=== PATIENT | male | born 2000 | race Caucasian/White ===

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

== ENCOUNTER 2022-02-23 14:03 | Outpatient (CLI) | payer BC, SELFPAY ==
[2022-02-25 15:08] LABS: Endomysial Antibody IgA Negative (Negative)
[2022-02-25 16:50] LABS: Deamidated Gliadin IgA 4 units (0-19); Deamidated Gliadin IgG 2 units (0-19); Immunoglobulin A 177 mg/dL (90-386); t-Transglutaminase IgA <2 U/mL (0-3)
== END 2022-02-23 23:59 | disposition home or self-care (01) ==
PROVIDERS: PCP Family Medicine; Referring Provider Family Medicine; Visit Provider Family Medicine
DX: R10.9 Unspecified abdominal pain (principal)
CPT/HCPCS: 36415; 82784; 83516; 86255

== ENCOUNTER → 2022-04-05 | Outpatient (CLI) | payer BC, SELFPAY ==
[2022-04-05 16:19] LABS: Absolute Lymphocyte Count 1.95 X10^3/uL (0.83-4.51); Absolute Neutrophil Count 2.8 X10^3/uL (2.0-7.7); Basophil# 0.04 X10^3/uL; Basophil% 0.7 % (0-1); Eosinophil# 0.21 X10^3/uL; Eosinophils% 3.8 % (0-5); Hematocrit 42.4 % (40-54); Lymphocyte # 1.95 X10^3/ul (0.83-4.51); Lymphocyte % 35.6 % (19-41); Mean Corp Hgb Conc 35.4 g/dL (32-36); Mean Corpuscular Hgb 28.8 pg (27.0-32.0); Mean Corpuscular Volume 81.5 fL (80-94); Mean Platelet Vol. 10.6 fl (6.2-12.0); Monocyte# 0.45 X10^3/uL; Monocyte% 8.2 % (0-10); NRBC Flagged by Analyzer 0 % (0-5); Neutrophil # 2.81 X10^3/uL (2.7-7.7); Neutrophil % 51.5 % (47-70); Platelet Count 244 K/mm3 (150-450); RBC Distribution Width CV 12.6 % (11.6-14.6); RBC Distribution Width SD 37.3 fl (35.1-43.9); White Blood Count 5.5 K/mm3 (4.4-11.0)
[2022-04-05 16:39] LABS: Erythrocyte Sedimentation Rate < 1 mm/hr (0-20)
[2022-04-05 16:57] LABS: ALB/GLOB Ratio 1.4 RATIO (0.9-2.4); AST(SGOT) 36 U/L (15-37); Alanine Aminotransfer ALT/SGPT 28 U/L (16-61); Albumin, Serum 4.3 g/dL (3.2-5.0); Alkaline Phosphatase 79 U/L (45-117); Anion Gap 7 (5-15); BUN 16 mg/dL (7-18); BUN/Creat Ratio 14.7 RATIO (10-20); CRP < 2.90 mg/L (0.0-3.0); Calcium,Total 9.6 mg/dL (8.5-10.1); Chloride 104 mmol/L (98-107); Creatinine, Serum 1.09 mg/dL (0.70-1.30); EST Glomerular Filtration Rate 92 mL/min (>60); Est Glom Filt Rate - Afr Amer 111 mL/min (>60); Globulin 3.1 g/dL (2.2-4.2); Glucose 85 mg/dL (74-106); Potassium 3.9 mmol/L (3.5-5.1); Protein, Total 7.4 g/dL (6.4-8.2); Sodium Level 139 mmol/L (136-145)
== END | disposition home or self-care (01) ==
LOC: LAB 15:35
PROVIDERS: PCP Family Medicine; Visit Provider Nurse Practitioner Adult Health
DX: R10.9 Unspecified abdominal pain (principal); R19.7 Diarrhea, unspecified; Z83.79 Family history of other diseases of the digestive system
CPT/HCPCS: 36415; 80053; 85025; 85652; 86140

== ENCOUNTER → 2022-04-15 | Outpatient (CLI) | payer BC, SELFPAY ==
--- NOTE | 2022-04-15 08:36 | US_ITS ---
STUDY: ABDOMINAL ULTRASOUND - RIGHT UPPER QUADRANT REASON FOR VISIT: Male, 22 years old RUQ pain, diarrhea -- RUQ US -- Chronic TECHNIQUE: Ultrasound evaluation of the right upper quadrant was performed with real-time and static quesada-scale imaging. TECHNICAL QUALITY: Adequate. COMPARISON: None. FINDINGS: Liver: The liver is mildly enlarged and measures 17.1 cm. There is normal echogenicity of the liver. The bile ducts are within normal limits. There is hepatic color flow. The direction of portal flow is hepatopetal. There is no demonstrated mass lesion. Gallbladder: Normal distended gallbladder. The gallbladder wall measures 2.1 mm. There is a negative sonographic Mcmullen''s sign. There is no pericholecystic fluid. There are no gallstones. Common Bile Duct (C.B.D.): The common bile duct measures 1.9 mm. Pancreas: Normal size of the head, body and tail of the pancreas. There is normal echogenicity of the pancreas. There is no demonstrated pancreatic mass or cyst. Right Kidney: Normal size of the right kidney. The right kidney measures 11.6 cm x 6.7 cm x 6.2 cm. Normal renal cortex. The right cortex measures 1.5 cm. There is no demonstrated renal mass or cyst. There is no right hydronephrosis. US/Abdomen Limited IMPRESSION: Borderline hepatomegaly. Electronically Signed: Jono Smith MD at 9:50 EDT ,
== END | disposition home or self-care (01) ==
LOC: US 08:35
PROVIDERS: PCP Family Medicine; Referring Provider Nurse Practitioner Adult Health; Visit Provider Nurse Practitioner Adult Health
DX: R10.11 Right upper quadrant pain (principal); R19.7 Diarrhea, unspecified
CPT/HCPCS: 76705

== ENCOUNTER 2022-07-13 05:33 | Day surgery (SDC) | payer BC, SELFPAY ==
[2022-07-13] VITALS (7 sets, daily range): BP systolic 99–132; BP diastolic 57–67; PULSE 56–63; RESP 16–18; TEMP 36.2–37.2; O2SAT 95–100; BMI 27.0
--- NOTE | 2022-07-13 | IMM_PTH ---
PATIENT: BEATRIS PEOPLES LOC: EN U#:[id number] AGE/SX: 22/M ROOM: RE07/13/[address]: Dr. Adan Melara DO : 2000 BED: DIS: 07/13/2022 SPEC #: [id number] RECD: 07/14/22 06:51 STATUS: WALTER REQ #: [id number] DIAMOND: 07/13/22 00:[address]: Adan Melara DEPT: IMMUNOHISTOCHEMISTRY RECD BY: Presley Barber ENTERED: 07/14/22 06:52 SP TYPE: IMMUNO OTHR DR: Dr. Jose Carter MD Tissues: COLON BIOPSY Procedures: H Pylori (initial) PHYSICIAN & INSTITUTION [place] [address] SPECIMEN INFORMATION: Tissue Source: B. Gastric body Clinical Info: Diarrhea, abdominal pain Specimen Number: [id number] CPT code: 11157 METHODOLOGY: Deparaffinized sections of prefer/formalin-fixed tissue or PAP/DQ stained slides are incubated with monoclonal/polyclonal antibodies/oligonucleotide probes. Localization is made via biotin free immunoperoxidase method. Appropriate controls are performed and reacted as expected. Results on target cell population are indicated in the following table: RESULTS: ANTIBODY / CLONE RESULT Block B H Pylori (polyclonal) negative These tests were developed and their performance characteristics determined by [facility]. They may not have been cleared or approved by the U.S. Food and Drug Administration. The FDA has determined that such clearance or approval is not necessary. The above immunohistochemical/dualISH markers are ordered and reviewed by the Pathologist. INTERPRETATION: Gastric body, biopsy: Negative for Helicobacter pylori organisms. AM: etienne
[2022-07-13] MEDS: Lactated Ringers 1,000 ML 15 ML IV (06:23)
--- NOTE | 2022-07-13 06:30 | EGD_PTH ---
PATIENT: BEATRIS PEOPLES LOC: EN U#:[id number] AGE/SX: 22/M ROOM: RE07/13/[address]: Dr. Adan Melara DO : 2000 BED: DIS: 07/13/2022 SPEC #: [id number] RECD: 07/13/22 11:14 STATUS: WALTER REBryant #: [id number] DIAMOND: 07/13/22 06:[address]: Adan Melara DEPT: SURGICAL PATHOLOGY RECD BY: Lisa Pak ENTERED: 07/13/22 11:52 SP TYPE: EGD BIOPSY [facility] DR: Dr. Jose Carter MD Tissues: A - Duodenum, NOS B - Gastric mucous membrane C - Esophagus, NOS D - Ileum, NOS E - COLON BIOPSY Procedures: Surgery Specimen Level IV HEADER OPERATION: Colonoscopy, EGD ([facility]) PRE-OP DIAGNOSIS: Diarrhea, abdominal pain TISSUE SUBMITTED: A. Duodenal biopsy, B. Gastric body biopsy, C. Distal esophageal biopsy, D. Terminal ileum, E. Random colonic biopsies MICROSCOPIC DIAGNOSIS A. 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 B. Gastric body biopsy: Minimal chronic inflammation. C. Distal esophageal biopsy? Gastric mucosa with mild chronic inflammation. No evidence of goblet cell metaplasia. See Comment. D. Terminal ileum: No pathologic change. E. Random colonic biopsies: No pathologic change. AM:am 07/14/2022 COMMENT B. The results of immunohistochemistry for Helicobacter pylori will be reported separately ([id number]). C. Alcian blue/PAS stain with matched control supports the above diagnosis. MICROSCOPIC DESCRIPTION Slides are reviewed. GROSS DESCRIPTION A. Received is one container labeled with the patient name and designated duodenal. The specimen consists of multiple irregular fragments of light hopkins soft tissue that in aggregate measure 1.2 x 0.3 x 0.1 cm. The specimen is totally submitted in one cassette. B: Received is one container labeled with the patient name and designated gastric body. The specimen consists of multiple irregular fragments of light hopkins soft tissue that in aggregate measure 0.8 x 0.3 x 0.1 cm.. The specimen is totally submitted in one cassette. C. Received is one container labeled with the patient name and designated distal esophageal. The specimen consists of two irregular fragments of light hopkins soft tissue that in aggregate measure 0.6 x 0.3 x 0.1 cm.. The specimen is totally submitted in one cassette. D. Received is one container labeled with the patient name and designated terminal ileum. The specimen consists of multiple irregular fragments of light hopkins soft tissue that in aggregate measure 1.2 x 0.3 x 0.1 cm.. The specimen is totally submitted in one cassette. E. Received is one container labeled with the patient name and designated random colonic. The specimen consists of multiple irregular fragments of light hopkins soft tissue that in aggregate measure 2.0 x 0.5 x 0.1 cm. The specimen is totally submitted in one cassette. / SJ:cc 07/13/22 TC:3 CPT:87996r2,34916
--- NOTE | 2022-07-13 06:31 | PCM.HP.BLA ---
History and Physical Date of Admission: 07/13/22 BEATRIS PEOPLES, is a 22 M who presents to the office today for recurrent episodes of abdominal pain. Last episode was in January. Went to ED, waited 4 hrs, vomited and felt better, so he left w/o being seen. Had 2 episodes that month and missed work which is unusual for him. [employer], coop at [employer] right now. Starts w/ discomfort in abdomen, then becomes sharp pain, hard to stand, gets diarrhea but has to sit on toilet for 15 minutes until he can go (feels like constipated at first). Typically feels better after diarrhea, the pain resolves. No melena or hematochezia. Only had nausea and vomiting w/ the last episode, he felt fine after vomiting. No hematemesis. Had shakes that time. Usually while on toilet he gets hot, sweaty. No fever. Gets some headaches but not correlated with GI symptoms. Started in first grade after getting sick from unpasteurized milk. Thinks the episodes occur after eating--maybe after he eats a lot and then does a physical activity. Pain is periumbilical or mid right abd. He was off gluten x 4 yrs. Recently took OTC treatment for gluten, now tolerates gluten. 02/23/22 celiac testing negative No OTC meds at this time Trying to eat healthier. He keeps physically fit. Denies joint pain, rashes, dry eyes, mouth sores. FH: 2 of his mother's siblings have ulcerative colitis ROS Const Constitutional: No fatigue ENT ENT: No difficulty swallowing Gastro GI: Positive for abdominal pain, bloating, constipation, diarrhea and vomiting; No belching, change in bowel habits, change in stool character, coffee ground emesis, cramping, heartburn, difficulty swallowing, feeling full early, excessive flatus, incontinent of stools, Vomiting blood/hematemesis, Blood in stool, loose stools, Black,tarry stools, nausea/dyspepsia, pain with swallowing or other Musc Musculoskeletal: No joint pain Skin Skin: No yellowing of the eye or itchy eyes Psych Psychiatric: No anxiety and No depression Endo Endocrine: No fatigue Aller/Imm Allergy/Immunologic: No itchy eyes Ortiz/Lymp Hematologic/Lymphatic: No easy bleeding or easy bruising Exam Const General: cooperative, healthy appearing, no acute distress, well developed and well groomed Nutritional Appearance: average body habitus Eyes General: appearance normal, both eyes and all related structures Neck Neck: normal visual inspection, no lymphadenopathy and supple Thyroid: thyroid normal Resp Effort & Inspection: normal respiratory effort GI Inspection: normal to inspection Percussion: normal to percussion Palpation: soft, no hepatosplenomegaly, no masses and nontender Skin General: no rashes or lesions noted Neuro Gait: normal gait Extrem General: normal to inspection Psych Mood: euthymic mood Affect: normal affect Quality Reporting Tobacco Screening ([facility] 138) Smoking Status: Never smoker Assessment and Plan Assessment and Plan (1) Abdominal pain: ?Status:?Acute (2) Diarrhea: ?Status:?Acute (3) FH: inflammatory bowel disease: ?Status:?Acute ? ? ? Orders:?Orders: ? Comprehensive Metabolic Profil 04/05/22 R10.9, R19.7, Z83.79 ? ? CRP 04/05/22 R10.9, R19.7, Z83.79 ? ? CBC W/Diff, Automated 04/05/22 R10.9, R19.7, Z83.79 ? ? Erythrocyte Sed Rate 04/05/22 R10.9, R19.7, Z83.79 ? ? Calprotectin, Stool 04/05/22 R10.9, R19.7, Z83.79 ? ? Stool Lactoferrin/WBC 04/05/22 R10.9, R19.7, Z83.79 ?Plan - Sara Perrin PUTTY REMOVER, PUTTY REMOVER-C: 22 yr old male with recurrent abdominal pain w/ diarrhea (and one time vomiting) x 14 yrs. No known rectal bleeding. FH IBD. DDx includes gallbladder disease, IBD, IBS, pancreatitis.? We will get labs today and stool tests for inflammation are ordered.? We will schedule him for endoscopy in case that proves to be necessary, we may change that plan based on lab results.? Follow-up 2 weeks after endoscopy, but in the meantime I will contact patient and his mother about his results. Plan Details Other Medications: ?Discontinued: ? acetaminophen-codeine 300-30 mg ?? Discontinued Reason:? Pt no longer taking 1 - 2 tabs (1 - 2 x 300-30 mg) PO Q6H PRN PRN 30 TABLETS 0RF Pain ? ? I have re-examined the patient. There are no clinical changes since date of exam.
--- NOTE | 2022-07-13 07:11 | OP.EGD_ITS ---
Patient Name: Negro Hale Procedure Date: 07/13/2022 6:29 AM Date of : 2000 Age: 22 Procedure: Upper GI endoscopy Indications: Generalized abdominal pain, Failure to respond to medical treatment Providers: Adan Melara DO Medicines: Monitored Anesthesia Care Patient Profile: This is a 22 year old male. Refer to note in patient chart for documentation of history and physical. Patient has symptoms of chronic abdominal cramping and chronic global abdominal pain. Complications: No immediate complications. Procedure: Pre-Anesthesia Assessment: - Prior to the procedure, a History and Physical was performed, and patient medications and allergies were reviewed. The risks and benefits of the procedure and the sedation options and risks were discussed with the patient. All questions were answered and informed consent was obtained. Patient identification and proposed procedure were verified by the physician in the pre-procedure area. Mental Status Examination: alert and oriented. Airway Examination: normal oropharyngeal airway and neck mobility. Respiratory Examination: clear to auscultation. CV Examination: normal. Prophylactic Antibiotics: The patient does not require prophylactic antibiotics. Prior Anticoagulants: The patient has taken no previous anticoagulant or antiplatelet agents. ASA Grade Assessment: II - A patient with mild systemic disease. After reviewing the risks and benefits, the patient was deemed in satisfactory condition to undergo the procedure. The anesthesia plan was to use moderate sedation / analgesia (conscious sedation). Immediately prior to administration of medications, the patient was re-assessed for adequacy to receive sedatives. The heart rate, respiratory rate, oxygen saturations, blood pressure, adequacy of pulmonary ventilation, and response to care were monitored throughout the procedure. The physical status of the patient was re-assessed after the procedure. After obtaining informed consent, the endoscope was passed under direct vision. Throughout the procedure, the patient's blood pressure, pulse, and oxygen saturations were monitored continuously. The pediatric colonoscope was introduced through the mouth, and advanced to the second part of duodenum. The upper GI endoscopy was accomplished without difficulty. The patient tolerated the procedure well. Scope In: 6:42:03 AM Scope Out: 6:47:46 AM Total Procedure Duration Time 0 hours 5 minutes 43 seconds Findings: The Z-line was irregular and was found 38 cm from the incisors. Biopsies were taken with a cold forceps for histology. Verification of patient identification for the specimen was done. Estimated blood loss was minimal. Patchy mildly erythematous mucosa without bleeding was found in the gastric body. Biopsies were taken with a cold forceps for histology. Verification of patient identification for the specimen was done. Patchy mildly erythematous mucosa without active bleeding and with no stigmata of bleeding was found in the duodenal bulb. Biopsies were taken with a cold forceps for histology. Verification of patient identification for the specimen was done. Estimated blood loss was minimal. Impression: - Z-line irregular, 38 cm from the incisors. Biopsied. - Erythematous mucosa in the gastric body. Biopsied. - Erythematous duodenopathy. Biopsied. Recommendation: - Discharge patient to home. - Resume previous diet. - Continue present medications. - Await pathology results. Procedure Code(s): --- Professional --- 91594, Esophagogastroduodenoscopy, flexible, transoral; with biopsy, single or multiple CPT copyright 2017 [employer]. All rights reserved. The codes documented in this report are preliminary and upon apprentice machinist outside review may be revised to meet current compliance requirements. Adan Melara DO 07/13/2022 7:10:50 AM This report has been signed electronically. Number of Addenda: 1 Note Initiated On: 07/13/2022 6:29 AM Addendum Number: 1 Addendum Date: 09/01/2022 6:17:33 AM MAC was used as sedation for this procedure. Adan Melara DO 09/01/2022 6:17:40 AM This report has been signed electronically.
--- NOTE | 2022-07-13 07:12 | OP.CCLET_ITS ---
09/01/2022 Jose Carter [address] [place] [address] Re : Upper GI endoscopy procedure for Negro Hale Dear Dr. Carter This procedure was performed on Wednesday, July 13, 2022. My impressions and recommendations are as follows: Impressions : - Z-line irregular, 38 cm from the incisors. Biopsied. - Erythematous mucosa in the gastric body. Biopsied. - Erythematous duodenopathy. Biopsied. Recommendations : - Discharge patient to home. - Resume previous diet. - Continue present medications. - Await pathology results. My findings are described in the full procedure note, which is enclosed. If I can be of further assistance, please feel free to contact me at . Sincerely, Adan Melara, 07/13/2022 7:10:50 AM This report has been signed electronically.
--- NOTE | 2022-07-13 07:17 | OP.COLON_ITS ---
Patient Name: Negro Hale Procedure Date: 07/13/2022 6:48 AM Date of : 2000 Age: 22 Procedure: Colonoscopy Indications: Generalized abdominal pain, Clinically significant diarrhea of unexplained origin Providers: Adan Melara DO Medicines: Monitored Anesthesia Care Patient Profile: This is a 22 year old male. Refer to note in patient chart for documentation of history and physical. Patient has symptoms of chronic abdominal cramping and chronic global abdominal pain. Last Colonoscopy: none. The patient's first colonoscopy is today. Complications: No immediate complications. Procedure: Pre-Anesthesia Assessment: - Prior to the procedure, a History and Physical was performed, and patient medications and allergies were reviewed. The risks and benefits of the procedure and the sedation options and risks were discussed with the patient. All questions were answered and informed consent was obtained. Patient identification and proposed procedure were verified by the physician in the pre-procedure area. Mental Status Examination: alert and oriented. Airway Examination: normal oropharyngeal airway and neck mobility. Respiratory Examination: clear to auscultation. CV Examination: normal. Prophylactic Antibiotics: The patient does not require prophylactic antibiotics. Prior Anticoagulants: The patient has taken no previous anticoagulant or antiplatelet agents. ASA Grade Assessment: II - A patient with mild systemic disease. After reviewing the risks and benefits, the patient was deemed in satisfactory condition to undergo the procedure. The anesthesia plan was to use moderate sedation / analgesia (conscious sedation). Immediately prior to administration of medications, the patient was re-assessed for adequacy to receive sedatives. The heart rate, respiratory rate, oxygen saturations, blood pressure, adequacy of pulmonary ventilation, and response to care were monitored throughout the procedure. The physical status of the patient was re-assessed after the procedure. After I obtained informed consent, the scope was passed under direct vision. Throughout the procedure, the patient's blood pressure, pulse, and oxygen saturations were monitored continuously. The Colonoscope was introduced through the anus and advanced to the terminal ileum. The colonoscopy was performed without difficulty. The patient tolerated the procedure well. The quality of the bowel preparation was good. Scope In: 6:49:52 AM Scope Withdrawal Time 0 hours 9 minutes 38 seconds Scope Out: 7:02:33 AM Total Procedure Duration Time 0 hours 12 minutes 41 seconds Findings: The perianal exam findings include Decreased rectal tone. The colon (entire examined portion) appeared normal. Biopsies were taken with a cold forceps for histology. Verification of patient identification for the specimen was done. Estimated blood loss was minimal. A patchy area of the terminal ileum was congested. Biopsies were taken with a cold forceps for histology. Verification of patient identification for the specimen was done. Estimated blood loss was minimal. Impression: - Decreased rectal tone. found on perianal exam. - The entire examined colon is normal. Biopsied. - Congested mucosa in the terminal ileum. Biopsied. Recommendation: - Discharge patient to home. - Resume previous diet. - Continue present medications. - Await pathology results. - Repeat colonoscopy in 5 years for surveillance based on pathology results. Procedure Code(s): --- Professional --- 44902, Colonoscopy, flexible; with biopsy, single or multiple CPT copyright 2017 [employer]. All rights reserved. The codes documented in this report are preliminary and upon worship director review may be revised to meet current compliance requirements. Adan Melara DO 07/13/2022 7:16:44 AM This report has been signed electronically. Number of Addenda: 1 Note Initiated On: 07/13/2022 6:48 AM Addendum Number: 1 Addendum Date: 09/01/2022 6:17:48 AM MAC was used as sedation for this procedure. Adan Melara DO 09/01/2022 6:17:52 AM This report has been signed electronically.
--- NOTE | 2022-07-13 07:18 | OP.CCLET_ITS ---
09/01/2022 Jose Carter [address] [place] [address] Re : Colonoscopy procedure for Negro Hale Dear Dr. Carter This procedure was performed on Wednesday, July 13, 2022. My impressions and recommendations are as follows: Impressions : - Decreased rectal tone. found on perianal exam. - The entire examined colon is normal. Biopsied. - Congested mucosa in the terminal ileum. Biopsied. Recommendations : - Discharge patient to home. - Resume previous diet. - Continue present medications. - Await pathology results. - Repeat colonoscopy in 5 years for surveillance based on pathology results. My findings are described in the full procedure note, which is enclosed. If I can be of further assistance, please feel free to contact me at . Sincerely, Adan Melara, 07/13/2022 7:16:44 AM This report has been signed electronically.
== END 2022-07-13 08:02 | disposition home or self-care (01) ==
LOC: EN 05:38 → AC 05:39
PROVIDERS: PCP Family Medicine; Referring Provider Family Medicine; Visit Provider Internal Medicine Gastroenterology
PROC: 0DJD8ZZ Inspection of Lower Intestinal Tract, Via Natural or Artificial Opening Endoscopic (ICD-10-PCS; CPT 45378; principal; 2022-07-13 06:25)
DX: K31.89 Other diseases of stomach and duodenum (principal); R10.84 Generalized abdominal pain; R19.7 Diarrhea, unspecified; Z83.79 Family history of other diseases of the digestive system
CPT/HCPCS: 45380; 43239; 88305; 88342; J7120; J2405

== ENCOUNTER 2022-08-22 16:26 | Observation (INO) | payer BC, SELFPAY ==
[2022-08-22 16:27] VITALS: BP 117/65; PULSE 68; RESP 17; TEMP 37; O2SAT 99; BMI 28.0
--- NOTE | 2022-08-22 16:40 | EDS_ITS ---
HPI HPI - GI History of Present Illness Chief Complaint: Abd Pain Narrative Narrative: Patient with past medical history of stomach problems presents with abdominal pain that he has had since 8:00 this morning, for approximately 8 and half hours. He has pain in the right lower quadrant and is nauseated but cannot vomit. He states he has been seen by Dr. Melara and is currently being worked up for why he has been having abdominal issues for the last few months. His mother relates history that back in January of this year he had a bad episode of abdominal pain and cramping and was off work for a day or 2. He states that he began having pain at work this morning, took ibuprofen, and his pain has improved but he has crampy to stabbing abdominal pain all over but also in the right lower quadrant. He denies any problems with diarrhea currently, but s tates on occasion intermittently he will have diarrhea or constipation. He feels nauseated but states he cannot vomit. No fevers or chills. No exacerbating or alleviating factors. PFSH PFSH Medical History Asthma FH: inflammatory bowel disease Non-smoker Wears contact lenses Home Medications NK 04/05/22 [History Last Taken Unknown] Allergy/AdvReac Type Severity Reaction Status Date / Time No Known Allergies Allergy Verified 08/22/22 16:31 Family History Other Colitis Surgical History Hx of foot surgery Hx of hand surgery Hx of wisdom tooth extraction Social History Smoking Status: Never smoker alcohol intake: never ROS ROS ED ROS Narrative Constitutional: No fever, no chills. HEENT: No sore throat. No neck pain. No loss of vision. No rhinorrhea. Cardiovascular: No chest pain. No palpitations. No pedal edema. Respiratory: No cough, no shortness of breath. Abdominal: Diffuse to right lower quadrant abdominal pain. Positive nausea. No vomiting. No problems with bowel movements/diarrhea Genitourinary: No dysuria. No hematuria. Musculoskeletal: No myalgias. No arthralgias. Neurologic: No headaches. No dizziness. No lightheadedness. Skin: No rash. No change in color. Psychiatric: No depression. No anxiety. EXAM Physical Exam Narrative Exam Narrative: Afebrile. Vital signs noted. HEENT: Normocephalic. Atraumatic. PERRL, EOMI. Neck soft and supple. No point tenderness or step off. Cardiovascular: Regular rate and rhythm. No murmurs, rubs, or gallops appreciated. Respiratory: No tachypnea. Lungs clear to auscultation bilaterally. Gastrointestinal: Abdomen soft, mild tenderness right lower quadrant with normoactive bowel sounds. No rebound or guarding. Negative heel strike. Neurological: Awake. Alert. Nonfocal, nonlateralizing. Skin: No rash. Normal color. No pallor. Musculoskeletal: No pedal edema. Full range of motion extremities. Const Vital Signs: 08/22/22 16:27 08/22/22 18:51 08/22/22 18:54 Temperature 98.6 F 98.7 F Temperature Source Temporal Oral Pulse Rate 68 62 62 Respiratory Rate 17 16 16 Blood Pressure 117/65 124/87 H Blood Pressure Mean 82 99 Blood Pressure Source Monitor Blood Pressure Position Semi-Fowlers Blood Pressure Location Right Arm Pulse Ox 99 99 100 Oxygen Delivery Method Room Air Room Air Room Air 08/22/22 20:55 08/22/22 22:29 Temperature 97.9 F Temperature Source Oral Pulse Rate 78 78 Respiratory Rate 16 16 Blood Pressure 112/65 117/62 Blood Pressure Mean 80 80 Blood Pressure Source Blood Pressure Position Blood Pressure Location Pulse Ox 98 99 Oxygen Delivery Method Room Air Room Air MDM MDM MDM Narrative Medical decision making narrative: Comprehensive work-up was pursued. I do feel CT imaging is indicated to rule out appendicitis given the tenderness in his right lower quadrant. Patient has an elevated white count of 14.4. Hemoglobin normal at 14.5. CMP is grossly unremarkable except for total bili of 1.1. CT of the abdomen pelvis is consistent with acute appendicitis with dilation greater than 13 mm. He was started on Zosyn. I discussed the patient with Dr. Karimi on for general surgery. Disposition is admit to the OR in stable condition. Lab Data Attestation: I reviewed the patient's lab results. Labs: Laboratory Results - last 24 hr 08/22/22 08/22/22 08/22/22 16:50 16:50 19:00 WBC 14.4 H RBC 5.18 Hgb 14.5 Hct 42.2 MCV 81.5 MCH 28.0 MCHC 34.4 RDW Std Deviation 36.2 RDW Coeff of Mor 12.2 Plt Count 231 MPV 11.3 Immature Gran % (Auto) 0.400 Neut % (Auto) 84.3 H Lymph % (Auto) 6.7 L [place] % (Auto) 7.7 Eos % (Auto) 0.6 Baso % (Auto) 0.3 Absolute Neuts (auto) 12.1 H Absolute Lymphs (auto) 0.96 Nucleated RBC % 0 Sodium 140 Potassium 3.7 Chloride 105 Carbon Dioxide 29.0 Anion Gap 6 BUN 16 Creatinine 1.18 Estim Creat Clear Calc 99.86 Est GFR (MDRD) Af Amer 101 Est GFR (MDRD) Non-Af 83 BUN/Creatinine Ratio 13.6 Glucose 111 H Calcium 9.6 Total Bilirubin 1.10 H AST 25 ALT 21 Alkaline Phosphatase 81 Total Protein 7.7 Albumin 4.2 Globulin 3.5 Albumin/Globulin Ratio 1.2 Urine Color Yellow Urine Clarity Clear Urine pH 8.0 Ur Specific [place] 1.010 Urine Protein Negative Urine Glucose (UA) Normal Urine Ketones 5 H Urine Occult Blood Negative Urine Nitrite Negative Urine Bilirubin Negative Urine Urobilinogen Normal Ur Leukocyte Esterase Negative Urine RBC 0 SEEN Urine WBC 0 SEEN Ur Squamous Epith Cells 0-5 SEEN Urine Bacteria RARE Urine Mucus 0 SEEN Radiography Diagnostic Testing: Clinical Impression(s) from Imaging Studies Abdomen/Pelvis CT 08/22/22 17:06 IMPRESSION: (NOT LISTED IN ORDER OF SIGNIFICANCE) Acute appendicitis. Other findings as above. Critical finding called and case discussed. Electronically Signed: Andry French MD at 17:55 EDT Reading Location ID and State: [facility] / [place] , Service support , ADDENDUM: 08/22/22 2407 IMPRESSION: (NOT LISTED IN ORDER OF SIGNIFICANCE) Acute appendicitis. Other findings as above. Critical finding called and case discussed. N.B. : The above Results were Read Back by Andry French MD to Gadiel Pradhan MD, and understanding confirmed on 08/22/2022 18:02:14 (ET). Electronically Signed: Andry Frnech MD at 17:55 EDT , Discharge Plan Dx/Rx/DC Orders Clinical Impression: Abdominal pain, Acute appendicitis, Nausea Disposition Disposition: Acute Care Hospital [facility]
[2022-08-22] MEDS: Morphine 4 MG/ML Syringe IV (16:52)
[2022-08-22] MEDS: 0.9% Normal Saline 1,000 ML 1000 ML IV (16:53)
[2022-08-22] MEDS: Ondansetron 4 MG/2 ML Vial IV (16:53)
--- NOTE | 2022-08-22 17:06 | CT_ITS ---
We are attempting to reach an attending provider to discuss findings. An addendum with communication details will be sent when the communication is complete. STUDY: CT Abdomen And Pelvis W/ Contrast Injection 08/22/2022 5:42 PM REASON FOR EXAM: Male, 22 years old. ABDOMINAL PAIN RLQ Pain TECHNIQUE: Transaxial images were obtained without oral contrast, and with IV 100mL Isovue-300 intravenous contrast. Individualized dose optimization techniques were used for this CT. COMPARISON: None. FINDINGS: The visualized lung bases are unremarkable. The visualized portions of the heart are within normal limits. Unremarkable liver. Unremarkable gallbladder and extrahepatic biliary system. Unremarkable spleen. Unremarkable pancreas. Unremarkable bilateral adrenal glands. No acute findings of the right kidney. No acute findings of the left kidney. Unremarkable visualized stomach. Unremarkable small intestine. Unremarkable colon. There is a tubular, thick-walled appendix (>13mm), consistent with acute appendicitis. Appendicolith at the base of the appendix. Appendix is retrocecal. The appendix extends into the pelvis. There are no acute findings of the abdominal aorta. Unremarkable inferior vena cava. Subcentimeter mesenteric lymph nodes. Unremarkable urinary bladder. Unremarkable abdominal wall. Unremarkable osseous structures. CT/Abdomen/Pelvis W IV Cont ONLY IMPRESSION: (NOT LISTED IN ORDER OF SIGNIFICANCE) Acute appendicitis. Other findings as above. Critical finding called and case discussed. Electronically Signed: Andry French MD at 17:55 EDT ,
[2022-08-22 17:08] LABS: Absolute Lymphocyte Count 0.96 X10^3/uL (0.83-4.51); Absolute Neutrophil Count 12.1 X10^3/uL (2.0-7.7); Basophil# 0.04 X10^3/uL; Basophil% 0.3 % (0-1); Eosinophil# 0.08 X10^3/uL; Eosinophils% 0.6 % (0-5); Hematocrit 42.2 % (40-54); Hemoglobin 14.5 g/dL (13.0-16.5); Lymphocyte # 0.96 X10^3/ul (0.83-4.51); Lymphocyte % 6.7 % (19-41); Mean Corp Hgb Conc 34.4 g/dL (32-36); Mean Corpuscular Volume 81.5 fL (80-94); Mean Platelet Vol. 11.3 fl (6.2-12.0); Monocyte# 1.11 X10^3/uL; Monocyte% 7.7 % (0-10); NRBC Flagged by Analyzer 0 % (0-5); Neutrophil # 12.11 X10^3/uL (2.7-7.7); Neutrophil % 84.3 % (47-70); Platelet Count 231 K/mm3 (150-450); RBC Distribution Width CV 12.2 % (11.6-14.6); RBC Distribution Width SD 36.2 fl (35.1-43.9); Red Blood Count 5.18 M/mm3 (4.6-6.2); White Blood Count 14.4 K/mm3 (4.4-11.0)
[2022-08-22 17:29] LABS: ALB/GLOB Ratio 1.2 RATIO (0.9-2.4); AST(SGOT) 25 U/L (15-37); Alanine Aminotransfer ALT/SGPT 21 U/L (16-61); Albumin, Serum 4.2 g/dL (3.2-5.0); Alkaline Phosphatase 81 U/L (45-117); Anion Gap 6 (5-15); BUN 16 mg/dL (7-18); BUN/Creat Ratio 13.6 RATIO (10-20); Calcium,Total 9.6 mg/dL (8.5-10.1); Chloride 105 mmol/L (98-107); Creatinine, Serum 1.18 mg/dL (0.70-1.30); EST Glomerular Filtration Rate 83 mL/min (>60); Est Glom Filt Rate - Afr Amer 101 mL/min (>60); Estimated Creatinine Clearance 99.86 ml/min; Globulin 3.5 g/dL (2.2-4.2); Glucose 111 mg/dL (74-106); Potassium 3.7 mmol/L (3.5-5.1); Protein, Total 7.7 g/dL (6.4-8.2); Sodium Level 140 mmol/L (136-145)
--- NOTE | 2022-08-22 18:28 | CON.PCM.SX_ITS ---
Assessment & Plan Assessment/Plan (1) Acute appendicitis: PLAN: My plan is perform a laparoscopic appendectomy I have counseled the patient as to the risks of the procedure, including but not limited to: infection, bleeding, injury to any blood vessels/nerves, injury to any bowel/bladder, injury to any intraabdominal organs such as the liver/spleen, perforation of the GI tract, intraabdominal abscess/bleeding, incisional hernias, injury to the common bile duct/biliary ducts, injury to the spermatic cord/vessels/testicles, recurrence of hernia(s), complications of anesthesia, etc. The patient verbalizes understanding. HPI Consult Data Date of Consult: 08/22/22 HPI Narrative HPI Narrative: BEATRIS PEOPLES, is a 22 M who presents with past medical history of stomach problems presents with abdominal pain that he has had since 8:00 this morning, for approximately 8 and half hours.? He has pain in the right lower quadrant and is nauseated but cannot vomit.? He states he has been seen by Dr. Melara and is currently being worked up for why he has been having abdominal issues for the last few months.? His mother relates history that back in January of this year he had a bad episode of abdominal pain and cramping and was off work for a day or 2.? He states that he began having pain at work this morning, took ibuprofen, and his pain has improved but he has crampy to stabbing abdominal pain all over but also in the right lower quadrant.? He denies any problems with diarrh ea currently, but states on occasion intermittently he will have diarrhea or constipation.? He feels nauseated but states he cannot vomit.? No fevers or chills.? No exacerbating or alleviating factors. CT scan of the appendix showed acute appendicitis with the base of the appendix showing a questionable appendicolith. Did not appear to be perforated. [facility] Medical History Asthma FH: inflammatory bowel disease Non-smoker Wears contact lenses Home Medications NK 04/05/22 [History Last Taken Unknown] Allergy/AdvReac Type Severity Reaction Status Date / Time No Known Allergies Allergy Verified 08/22/22 16:31 Family History Other Colitis Surgical History Hx of foot surgery Hx of hand surgery Hx of wisdom tooth extraction Social History Smoking Status: Never smoker alcohol intake: never ROS Constitutional Constitutional: Denies chills, fatigue or fever(s) Eyes Eyes: Denies change in vision ENT HEENT: Denies neck pain Cardiovascular Cardiovascular: Denies chest pain Respiratory/Chest Respiratory/Chest: Denies cough or dyspnea Gastrointestinal Gastrointestinal: Reports abdominal pain and bloating Genitourinary Genitourinary: Denies change in urinary stream Physical Exam Const alert, oriented x3, no apparent distress and healthy appearing HEENT normocephalic and head/scalp atraumatic Eyes PERRL and EOMs intact bilaterally Resp normal respiratory effort and clear to auscultation bilaterally Cardio Rate: regular rate Rhythm: regular rhythm GI Palpation: tender and guarding Bladder / Kidney Exam: no CVA tenderness Lab / Micro Data Result Diagrams: 08/22/22 16:50 08/22/22 16:50 Labs: Laboratory Results - last 24 hr 08/22/22 16:50: WBC 14.4 H, RBC 5.18, Hgb 14.5, Hct 42.2, MCV 81.5, MCH 28.0, MCHC 34.4, RDW Std Deviation 36.2, RDW Coeff of Mor 12.2, Plt Count 231, MPV 11.3, Immature Gran % (Auto) 0.400, Neut % (Auto) 84.3 H, Lymph % (Auto) 6.7 L, [place] % (Auto) 7.7, Eos % (Auto) 0.6, Baso % (Auto) 0.3, Absolute Neuts (auto) 12.1 H, Absolute Lymphs (auto) 0.96, Nucleated RBC % 0 08/22/22 16:50: Sodium 140, Potassium 3.7, Chloride 105, Carbon Dioxide 29.0, Anion Gap 6, BUN 16, Creatinine 1.18, Estim Creat Clear Calc 99.86, Est GFR (MDRD) Af Amer 101, Est GFR (MDRD) Non-Af 83, BUN/Creatinine Ratio 13.6, Glucose 111 H, Calcium 9.6, Total Bilirubin 1.10 H, AST 25, ALT 21, Alkaline Phosphatase 81, Total Protein 7.7, Albumin 4.2, Globulin 3.5, Albumin/Globulin Ratio 1.2 Radiology Impression Abdomen/Pelvis CT 08/22/22 17:06 IMPRESSION: (NOT LISTED IN ORDER OF SIGNIFICANCE) Acute appendicitis. Other findings as above. Critical finding called and case discussed. Electronically Signed: Andry French MD at 17:55 EDT , ADDENDUM: 08/22/22 1809 IMPRESSION: (NOT LISTED IN ORDER OF SIGNIFICANCE) Acute appendicitis. Other findings as above. Critical finding called and case discussed. N.B. : The above Results were Read Back by Andry French MD to Gadiel Pradhan MD, and understanding confirmed on 08/22/2022 18:02:14 (ET). Electronically Signed: Andry French MD at 17:55 EDT ,
[2022-08-22 18:51] VITALS: BP 124/87; PULSE 62; RESP 16; O2SAT 99
[2022-08-22 18:54] VITALS: PULSE 62; RESP 16; TEMP 37.1; O2SAT 100; BMI 28.0
--- NOTE | 2022-08-22 19:00 | APP_PTH ---
PATIENT: BEATRIS PEOPLES LOC: [facility]3 U#:[id number] AGE/SX: 22/M ROOM: MS311 RE08/23/[address]: Dr. Bhargav Karimi MD : 2000 BED: 1 DIS: 08/23/2022 SPEC #: [id number] RECD: 08/23/22 11:52 STATUS: WALTER ROBBINS #: [id number] DIAMOND: 08/22/22 19:[address]: Bhargav Karimi DEPT: SURGICAL PATHOLOGY RECD BY: Lisa Pak ENTERED: 08/23/22 12:31 SP TYPE: APPENDIX OTHR DR: Dr. Jose Carter MD Tissues: Appendix, NOS Procedures: Surgery Specimen Level III HEADER OPERATION: Laparoscopic appendectomy PRE-OP DIAGNOSIS: Acute appendicitis TISSUE SUBMITTED: Appendix MICROSCOPIC DIAGNOSIS Appendix, appendectomy: Acute appendicitis. Acute serositis. AM:henna 08/24/2022 MICROSCOPIC DESCRIPTION Slides are reviewed. GROSS DESCRIPTION Received in fixative is one container labeled with the patient's name and designated appendix. The specimen consists of an appendix measuring 9 cm in length and up to 1 cm in diameter. The attached periappendiceal adipose tissue measures up to 2.5 cm in width. The serosa is congested. No obvious perforation is identified. The lumen contains hemorrhagic fecal material. No fecalith is identified. Water Sponger sections are submitted in one cassette. / SJ:rg 08/23/2022 TC:2 CPT: 51798
[2022-08-22 19:14] LABS: Mucous, Urine 0 SEEN /hpf (<or=2+); Red Blood Cells-Urine 0 SEEN /hpf (0-5); White Blood Cells 0 SEEN /hpf (0-5)
[2022-08-22 19:18] LABS: Color, Urine Yellow (Yellow); Glucose, Dipstick Normal (Normal); Ketone-Dipstick 5 mg/dl (Negative); Leukocyte Esterase-Dipstick Negative /ul (Negative); Nitrite-Dipstick Negative (Negative); Occult Blood-Urine Negative /ul (Negative); Protein-Dipstick Negative (Negative); Urine Bilirubin Dipstick Negative (Negative); Urine Clarity Clear (Clear); Urine Urobilinogen Normal (Normal)
[2022-08-22 19:34] LABS: Bacteria RARE /hpf (None Seen); Squamous Epithelial Cells - UA 0-5 SEEN /hpf (0-5)
[2022-08-22 20:55] VITALS: BP 112/65; PULSE 78; RESP 16; O2SAT 98
[2022-08-22 22:29] VITALS: BP 117/62; PULSE 78; RESP 16; TEMP 36.6; O2SAT 99
[2022-08-23] VITALS (10 sets, daily range): BP systolic 108–143; BP diastolic 57–81; PULSE 60–101; RESP 14–18; TEMP 36.8–37.9; O2SAT 92–98; BMI 26.4
--- NOTE | 2022-08-23 00:17 | PCM.OPRPT ---
Problems Associated Problem List Diagnoses (1) Acute appendicitis: Report of Operation Date of Procedure: 08/22/22 Pre-Operative Diagnosis: Acute appendicitis Post-Operative Diagnosis: Same Surgery/Procedure Performed:: Laparoscopic appendectomy Surgeon: Bhargav Karimi staffing program manager: Otto Guadalupe Type of Anesthesia: General Anesthesiologist: Leonel Canela Specimen's removed: Appendix Drains: None Estimated Blood Loss (mL): < 5 cc Description of Procedure: Patient was brought in the operating room. Placed in the supine position. Under excellent general anesthetic the abdomen was sterilely prepped and draped in usual fashion. Local was injected infraumbilically. Dissection was carried down to the fascia. The fascia was grasped with a Norco. Varies needle was placed inside the abdomen. The abdomen was insufflated to 15 torr. A 10/12 trocar was placed without difficulty. Patient is placed in the headdown and rotated to the left position. Suprapubic #5 trochars placed, left lower quadrant #5 trocar was placed. Both of these placed under direct visualization without injury to underlying structures. Patient was noted to have acute appendicitis with a apparent appendicolith in the middle of the appendix. I came down the mesoappendix with the Enseal. I transected the base of the appendix with a 45 linear cutter. Placed the specimen in a specimen bag and delivered through the umbilical port without difficulty. Irrigated the right lower quadrant good pneumostasis was noted. Irrigated the pelvis small turbid fluid but no real pus was identified. The liver looked fine. I ran the small bowel and saw no signs of a Meckel's diverticulum. I removed the trochars under direct visualization good with stasis was noted. Close the fascia the umbilical port with a [id number] stitch of 0 Vicryl. Skin incisions were closed with subcuticular stitches of 4-0 Monocryl. Steri-Strips were applied sterile dressings were applied and the patient tolerated the procedure well. Admit VTE Documentation VTE Present on Admission: No VTE Mechan Device Prophylaxis: SCD's VTE Pharm Prophylaxis ordered?: No Reason prophylaxis not ordered:: Treatment Not Indicated
--- NOTE | 2022-08-23 00:20 | DCINST_ITS ---
Discharge Instructions Procedure Appendectomy Diet Discharge Diet: Light diet - advance as tolerated (if you have questions about your diet instructions, please talk to you doctor.) Activity Discharge Activity: May Not Drive (for 3-5 days or while taking narcotic pain meds.) May shower in (days): 1 Dressing / Incision Call your doctor if your incision/area has: Continuous Slow Oozing, Sudden Increased Bleeding, Increased Pain/ Swelling, Increased Redness and Foul Smelling Discharge Call your doctor if you observe: Fever of 101 or Higher Suture Line Care: Avoid Pulling/Pushing and Avoid Pinching/Bending Additional Dressing/Incision Instructions:: Keep dressing clean and dry. Change or remove dressing in 2 days. Leave steri strips for 1 week. May protect with a gauze bandaid. Follow Up Care Please Follow Up With: Clotilde Perez PA-C When: Call office to schedule an appointment to be seen in 1 week. Test Results: Test results from this visit will be discussed in further detail at your follow- up appointment, if applicable. Discharge Plan Admission Attending Provider: Bhargav Karimi Primary Care Provider: Jose Carter Discharge Orders/Prescriptions Prescriptions: No Action NK Referrals / Follow Up: Jose Carter MD [Primary Care Provider] - Disposition Disposition (needs filled in before D/C Order can be placed): Home, Self Care
[2022-08-23] MEDS: 0.9% Normal Saline 1,000 ML 75 ML IV (01:51)
[2022-08-23 04:57] LABS: Absolute Lymphocyte Count 1.89 X10^3/uL (0.83-4.51); Absolute Neutrophil Count 7.7 X10^3/uL (2.0-7.7); Basophil# 0.03 X10^3/uL; Basophil% 0.3 % (0-1); Eosinophil# 0.07 X10^3/uL; Eosinophils% 0.7 % (0-5); Hematocrit 36.6 % (40-54); Hemoglobin 12.9 g/dL (13.0-16.5); Lymphocyte # 1.89 X10^3/ul (0.83-4.51); Lymphocyte % 17.7 % (19-41); Mean Corp Hgb Conc 35.2 g/dL (32-36); Mean Corpuscular Volume 82.2 fL (80-94); Mean Platelet Vol. 11.4 fl (6.2-12.0); Monocyte# 0.92 X10^3/uL; Monocyte% 8.6 % (0-10); NRBC Flagged by Analyzer 0 % (0-5); Neutrophil # 7.73 X10^3/uL (2.7-7.7); Neutrophil % 72.3 % (47-70); Platelet Count 170 K/mm3 (150-450); RBC Distribution Width CV 12.4 % (11.6-14.6); RBC Distribution Width SD 37.2 fl (35.1-43.9); Red Blood Count 4.45 M/mm3 (4.6-6.2); White Blood Count 10.7 K/mm3 (4.4-11.0)
[2022-08-23 05:34] LABS: Anion Gap 6 (5-15); BUN 15 mg/dL (7-18); Calcium,Total 8.3 mg/dL (8.5-10.1); Chloride 107 mmol/L (98-107); Creatinine, Serum 1.07 mg/dL (0.70-1.30); EST Glomerular Filtration Rate 93 mL/min (>60); Est Glom Filt Rate - Afr Amer 113 mL/min (>60); Estimated Creatinine Clearance 117.29 ml/min; Glucose 90 mg/dL (74-106); Potassium 3.8 mmol/L (3.5-5.1); Sodium Level 140 mmol/L (136-145)
[2022-08-23] MEDS: oxyCODONE 5 MG Tablet PO ×2 (05:47→10:18)
[2022-08-23] MEDS: Ondansetron 4 MG/2 ML Vial IV (06:11)
[2022-08-23] MEDS: 0.9% Saline Lock 10 ML Syringe IV (10:18)
--- NOTE | 2022-08-23 12:05 | PHA.DC.MC ---
Pharmacy Service has performed discharge medication reconciliation and counseling for this patient. 1. OXYCODONE/ACETAMINOPHEN 5/325MG 1T PO Q4H PRN PAIN The patient's discharge medication list was reviewed for discrepancies and discrepancies were resolved. Home Medications oxycodone-acetaminophen 5 mg-325 mg tablet (Endocet) 1 tab PO Q4H PRN pain 5 days #20 tabs 08/23/22 The patient was counseled on the following discharge medications and changes in medications for homegoing were reviewed. The Reason for Use, instructions for use, and potential side effects were reviewed for all new medications. The patient's questions regarding all of their medications were answered. The patient was able to verbally demonstrate an understanding of their discharge medications. Patient counseled by pharmacy district managerCorey.
== END 2022-08-23 13:35 | disposition home or self-care (01) ==
LOC: ED 18:04 → AC 18:36 → MS3 08-23 00:38
PROVIDERS: Admitting Provider Surgery; Emergency Provider Emergency Medicine; PCP Family Medicine; Visit Provider Surgery
PROC: 0DTJ4ZZ Resection of Appendix, Percutaneous Endoscopic Approach (ICD-10-PCS; CPT 44970; principal; 2022-08-22 18:40)
DX: K35.80 Unspecified acute appendicitis (principal); J45.909 Unspecified asthma, uncomplicated
CPT/HCPCS: 44970; 00840; 36415; 74177; 80048; 80053; 81001; 85025; 88304; 96361; 96365; 96366; 96375; 96376; 99218; 99251; 99284; J7030; J7050; Q9967; A4216; C1760; G0378; G0463; J2405

== ENCOUNTER → 2022-11-14 | Outpatient (CLI) | payer BC, SELFPAY ==
--- NOTE | 2022-11-14 10:09 | NM_ITS ---
CLINICAL: 22-year-old male with history of postprandial abdominal pain. RADIONUCLIDE HEPATOBILIARY SCINTIGRAPHY COMPARISON: CT of the abdomen-pelvis report 08/22/2022, abdominal ultrasound report 04/15/2022 FINDINGS: Following the intravenous administration of 5.2 mCi of 99m Tc Mebrofenin, hepatobiliary images reveal: 1. Relatively prompt and homogeneous radiopharmaceutical concentration is noted by the hepatic parenchyma. No parenchymal defects are identified. 2. Gallbladder activity is identified at 10 minutes post radiopharmaceutical administration. 3. Small intestinal tract is observed at by 60 minutes following tracer injection. 4. Washout of the radiopharmaceutical by the hepatic parenchyma appears qualitatively normal. Cholecystokinin (0.02 ug/kg) was administered intravenously over a 30-minute period. The post CCK gallbladder ejection fraction calculated at 21 is minutes following Cholecystokinin administration was noted to be 17.0 % (normal greater than 35%). During 30 minutes of post CCK imaging, there is no scintigraphic evidence of reflux of the radiotracer into the common hepatic duct or refilling of the gallbladder. NM/Hepatobilliary Img w/Pharm Int IMPRESSION: 1. NORMAL 99m Tc Mebrofenin hepatobiliary imaging examination with Cholecystokinin. A. A gallbladder ejection fraction calculated to be greater than 35% following the administration of Cholecystokinin makes the probability of functional hepatobiliary disease (gallbladder and/or sphincter of Oddi dyskinesia) and/or organic hepatobiliary disease (chronic acalculous cholecystitis and/or cystic duct syndrome) to be low. (Livia Toribio et al, Journal of Nuclear Medicine 32:1695, 1991). Electronically Signed: Shahriar Rosa, at 22:06 EST ,
== END | disposition home or self-care (01) ==
PROVIDERS: PCP Family Medicine; Visit Provider Nurse Practitioner Adult Health
DX: R19.7 Diarrhea, unspecified (principal); R10.9 Unspecified abdominal pain
CPT/HCPCS: 78227; A9537; J2805